=== PATIENT | female | born 1955 | race Caucasian/White ===

== ENCOUNTER 2021-02-12 07:39 | Outpatient (CLI) | payer BC, SELFPAY ==
--- NOTE | 2021-02-12 | ECHO_ITS ---
Patient Info Name: Alysha Paz Age: 66 years : 1955 Gender: Female Ht: 64 in Wt: 204 lbs BSA: 2.08 m2 HR: 60 bpm BP: 159 / 106 mmHg Heart Rhythm: Sinus Rhythm Exam Date: 02/12/2021 8:09 AM Exam Location: [facility] Patient Status: Outpatient Admit Date: 02/12/2021 Staff Ordering Physician: EugeneWarren MD Palletizer Operator: Juaquin Gaines, ANITHACS, RT Attending Provider: EugeneWarren MD Exam Type: CA echo doppler color flow Study Info Indications R07.9 - Chest pain, unspecified Complete two-dimensional, color flow and Doppler transthoracic echocardiogram is performed. Strain analysis performed. Summary 1. Complete two-dimensional, color flow and Doppler transthoracic echocardiogram is performed. 2. Left ventricular chamber dimension is normal. 3. Left ventricular systolic function is normal, estimated at 65-70%. 4. There is mildly increased left ventricular wall thickness. 5. The left ventricular diastolic function is normal. 6. Global longitudinal strain is borderline at -16 %. 7. Left atrial chamber dimension is mildly enlarged. 8. There is mild mitral valve regurgitation. 9. There is mild pulmonic regurgitation. Left Ventricle Left ventricular chamber dimension is normal. Left ventricular systolic function is normal, estimated at 65-70%. There is mildly increased left ventricular wall thickness. The left ventricular diastolic function is normal. Global longitudinal strain is borderline at -16 %. Right Ventricle Right ventricular chamber dimension is normal. Right ventricular systolic function is normal. Left Atria Left atrial chamber dimension is mildly enlarged. Right Atria Right atrial chamber dimension is normal. Atrial Septum Intact interatrial septum visualized by color flow imaging. Aortic Valve The aortic valve is trileaflet. There is mild aortic valve sclerosis. There is no aortic valve stenosis. There is trace aortic valve regurgitation. Pulmonic Valve The pulmonic valve is normal. There is no pulmonic valve stenosis. There is mild pulmonic regurgitation. Mitral Valve The mitral valve has normal leaflets. There is no mitral valve stenosis. There is mild mitral valve regurgitation. Tricuspid Valve The tricuspid valve leaflets are normal. There is no significant tricuspid valve stenosis. There is trace tricuspid valve regurgitation. Pericardium/Pleural The pericardium appears normal. There is no pericardial effusion. Inferior Vena Cava Dilated inferior vena cava with <50% collapse upon inspiration consistent with elevated right atrial pressure, 10 mmHg. Aorta The aortic root size at the sinus of Valsalva is normal. Left Ventricular Outflow Tract Name Value Normal LVOT 2D LVOT Diameter 2.0 cm LVOT Doppler LVOT Peak Gradient 3 mmHg LVOT Mean Gradient 1 mmHg LVOT VTI 23 cm LVOT VTI/AV VTI Ratio 0.7 LVOT Stroke Volume 72 ml LVOT CO 4.
--- NOTE | 2021-02-12 | EST_ITS ---
Patient Info Name: Alysha Paz Age: 66 years : 1955 Gender: Female Ht: 64 in Wt: 204 lbs BSA: 2.08 m2 HR: 64 bpm BP: 196 / 94 mmHg Heart Rhythm: Sinus Rhythm Exam Date: 02/12/2021 9:52 AM Exam Location: [facility] Patient Status: Outpatient Admit Date: 02/12/2021 Staff Ordering Physician: EugeneWarren MD Attending Provider: Eugene, Warren GUTIÉRREZ Exercise Technologist: Ana M Lujan CT Exercise Physician: Diony Grier MD Exam Type: CA stress test treadmill Study Info Indications R07.9 - Chest pain, unspecified An exercise stress test was performed. Summary 1. Frequent PVCs and rare ventricular couplets. 2. Borderline abnormal exercise treadmill stress test With Up to 1.5 mm Upsloping Inferolateral STSegment depressions Seen at peak exercise. Protocol: [facility] ECG Details Stage: REST Duration (min): 5 min : 23 sec Speed (mph): 0.0 Grade (%): 0 HR (bpm): 68 SBP (mmHg): 196 DBP (mmHg): 94 METS: --- Stage: REST Duration (min): 8 min : 29 sec Speed (mph): 0.0 Grade (%): 0 HR (bpm): 72 SBP (mmHg): 179 DBP (mmHg): 101 METS: --- Stage: STAGE 1 Duration (min): 1 min : 0 sec Speed (mph): 1.7 Grade (%): 10 HR (bpm): 99 SBP (mmHg): 179 DBP (mmHg): 101 METS: --- Stage: STAGE 1 Duration (min): 2 min : 0 sec Speed (mph): 1.7 Grade (%): 10 HR (bpm): 108 SBP (mmHg): 179 DBP (mmHg): 101 METS: --- Stage: STAGE 1 Duration (min): 3 min : 0 sec Speed (mph): 1.7 Grade (%): 10 HR (bpm): 113 SBP (mmHg): 179 DBP (mmHg): 101 METS: --- Stage: STAGE 2 Duration (min): 1 min : 0 sec Speed (mph): 2.5 Grade (%): 12 HR (bpm): 136 SBP (mmHg): 179 DBP (mmHg): 101 METS: --- Stage: STAGE 2 Duration (min): 2 min : 0 sec Speed (mph): 2.5 Grade (%): 12 HR (bpm): 145 SBP (mmHg): 199 DBP (mmHg): 99 METS: --- Stage: STAGE 2 Duration (min): 2 min : 0 sec Speed (mph): 2.5 Grade (%): 12 HR (bpm): 145 SBP (mmHg): 199 DBP (mmHg): 99 METS: --- Stage: RECOVERY Duration (min): 0 min : 59 sec Speed (mph): 0.0 Grade (%): 0 HR (bpm): 119 SBP (mmHg): 199 DBP (mmHg): 99 METS: --- Stage: RECOVERY Duration (min): 1 min : 59 sec Speed (mph): 0.0 Grade (%): 0 HR (bpm): 94 SBP (mmHg): 199 DBP (mmHg): 99 METS: --- Stage: RECOVERY Duration (min): 2 min : 59 sec Speed (mph): 0.0 Grade (%): 0 HR (bpm): 85 SBP (mmHg): 199 DBP (mmHg): 99 METS: --- Stage: RECOVERY Duration (min): 3 min : 59 sec Speed (mph): 0.0 Grade (%): 0 HR (bpm): 80 SBP (mmHg): 199 DBP (mmHg): 99 METS: --- Stage: RECOVERY Duration (min): 4 min : 59 sec Speed (mph): 0.0 Grade (%): 0 HR (bpm): 81 SBP (mmHg):
== END 2021-02-12 07:40 | disposition home or self-care (01) ==
PROVIDERS: Visit Provider Internal Medicine
DX: R07.89 Other chest pain (principal); I34.0 Nonrheumatic mitral (valve) insufficiency; I37.1 Nonrheumatic pulmonary valve insufficiency
CPT/HCPCS: 93017; 93306

== ENCOUNTER 2025-01-18 15:44 | Emergency (ER) | payer MEDICARE, SELFPAY ==
--- NOTE | ~2025-01-18 | XR_ITS ---
Examination: XR foot RT min 3V Clinical History: R foot wound, diabetic Comparison: None Technique: 3 views right foot Findings/impression: 1. No evidence of osteomyelitis or gas forming infection. 2. No fracture or other acute bony abnormality. Reviewed, dictated and finalized at location R.
--- OUTSIDE RECORDS SUMMARY | 2025-01-18 15:46 | XMS_ITS | Data Portability ---
Author Organization [place] [facility] [employer], Main Office Address [address] [place] [address] Assessment Encounter Date Assessment Date Assessment LastModified by Organization Details LastModified Time 12/16/2022 12/16/2022 Blood work Ozempic targets for A1c blood pressure blood lipids control discussed See me back in 4 weeks 2 week Holter complete echo carotid duplex MRI brain any similar symptoms go to the emergency room [email or web address] Not available 12/20/2022 16:16:53 01/20/2023 01/20/2023 Risks discussed in detail of uncontrolled diabetes as well as not getting worked up for stroke which were included but not limited to sepsis heart attack fatal and non fatal stroke fatal and nonfatal neuropathy amputations of extremities because of gangrene or serious neuropathy poor circulation in general blood sugar going too high resulting in coma and possibly to name a few she says she will start the medication I will see her back in a month it is unclear whether she is going to get the additional test Flu shot and COVID shots record as well as staying up-to-date with shingles tetanus and pneumonia immunizations [email or web address] Not available 01/23/2023 14:17:44 04/22/2023 04/22/2023 Will obtain blood work and if the A1c is what I suspect it will be fairly high she will need to go on a basal bolus insulin regimen continue with her other medications statin ex cetera I would like for her to reconsider getting worked up for stroke which right now she does not want to do she will see me back in a couple months. I think she would benefit from a dex con 6 ir freestyle José Luis some type of a continuous blood glucose monitoring strategy [email or web address] Not available 05/06/2023 15:41:03 Plan of Treatment Reminders Order Date Submit Date Provider Last Modified By Organization Details Last Modified Time Details Appointments None recorded. Lab CBC w/ auto diff 2023 024 [employer] [facility], [address], [place], [address], 4 15:57:08 lipid panel, serum 2023 024 [employer] [facility], [address], [place], [address], 4 16:32:35 CMP, serum or plasma 2023 024 [employer] [facility], [address], [place], [address], 4 16:32:41 HbA1c (hemoglobin A1c), blood 2023 024 [email or web address] [employer] [facility], [address], [place], [address], 4 18:17:52 T3, free, serum or plasma 2022 023 [employer] [facility], [address], [place], [address], 3 17:43:16 TSH, serum or plasma 2022 023 [employer] [facility], [address], [place], [address], 3 17:56:50 T4, free, serum 2022 023 [employer] [facility], [address], [place], [address], 3 17:43:19 CBC w/ auto diff 2022 023 [employer] [facility], [address], [place], [address], 3 17:18:02 lipid panel, serum 2022 023 [facility] [facility], [address], [place], [address], 3 17:26:51 CMP, serum or plasma 2022 023 [employer] [facility], [address], [place], [address], 3 17:26:55 HbA1c (hemoglobin A1c), blood 2022 023 [place] [id number] [employer] [facility], [address], [place], [address], 4 18:17:52 Referral None recorded. Procedures None recorded. Surgeries None recorded. Imaging US, duplex, carotid artery [address] ([facility]), [address] [place], [address], 4 18:18:00 MRI, brain, w/o contrast - Pt needs OPEN MRI [address] Patient Access Centralized Scheduling, Centralized Scheduling, [address] [facility] [place], [address], 4 15:39:12 US, echocardiog mary jo [address] ([facility]), [address] [place], [address], 4 18:18:00 holter monitor - 2wk holter [address] [facility], [address], [address], [place], [address], 4 18:18:01 Medication Orders Tresiba FlexTouch U-100 insulin 100 unit/mL (3 mL) [facility]23 024 [email or web address] [id number], [address], [place], [place], [id number], 4 17:35:39 Humalog KwikPen (U-100) Insulin 100 unit/mL subcutaneou s 2023 024 [email or web address] [facility] #[id number], [address] , [place], [place], [id number], 4 16:45:55 Ozempic 0.25 mg or 0.5 mg (2 mg/1.5 mL) [facility] s pen injector 2022 023 [email or web address] [facility] #[id number], [address] , [place], [place], [id number], 14:08:36 Patient TargetsNo targets recorded. Patient InstructionsNo instructions recorded. Reason for Referral None Reported. Results Created Date Observation Date Name Description Value Unit Range Abnormal Flag Note LastModifiedBy Organization Detail LastModifiedTime 12/29/1912/28/2022 CBC/C OMPLE TE BLD COUNT W/DIF F white blood cells 8.0 x10'3 /uL 4.2-10 .8 Not Available [facility] (Lab) [address] [place], [address], 12/28/2022 17:18:02 12/29/1912/28/2022 CBC/C OMPLE TE BLD COUNT W/DIF F red blood cells 5.36 x10'6 /uL 3.80-5 .20 high Not Available [facility] (Lab) [address] [place], [address], 12/28/2022 17:18:02 12/29/19 23 12/28/2022 CBC/C OMPLE TE BLD COUNT W/DIF F hemoglobin 15.2 g/dL 12.0-1 5.6 Not Available [facility] (Lab) [address] [place], [address], 12/28/2022 17:18:02 12/29/19 23 12/28/2022 CBC/C OMPLE TE BLD COUNT W/DIF F hematocrit 47.7 % 35.7-4 5.7 high Not Available [facility] (Lab) [address] [place], [address], 12/28/2022 17:18:02 12/29/19 23 12/28/2022 CBC/C OMPLE TE BLD COUNT W/DIF F mean red cell volume 89.0 fL 82.0-9 9.0 Not Available [facility] (Lab) [address] [place], [address], 12/28/2022 17:18:02 12/29/19 23 12/28/2022 CBC/C OMPLE TE BLD COUNT W/DIF F mean red cell hemoglobin 28.4 pg 27.0-3 3.0 Not Available [facility] (Lab) [address] [place], [address], 12/28/2022 17:18:02 12/29/19 23 12/28/2022 CBC/C OMPLE TE BLD COUNT W/DIF F mean RBC HGB concentratio n 31.9 g/dL 31.0-3 6.0 Not Available [facility] (Lab) [address] [place], [address], 12/28/2022 17:18:02 12/29/19 23 12/28/2022 CBC/C OMPLE TE BLD COUNT W/DIF F red cell distribution width 13.2 % 11.8-1 5.5 Not Available [facility] (Lab) [address] [place], [address], 12/28/2022 17:18:02 12/29/19 23 12/28/2022 CBC/C OMPLE TE BLD COUNT W/DIF F platelets 210 x10'3 /uL 150-40 0 Not Available [facility] (Lab) [address] [place], [address], 12/28/2022 17:18:02 12/29/1912/28/2022 CBC/C OMPLE TE BLD COUNT W/DIF F mean platelet volume 10.4 fL 9.0-12 .4 Not Available [facility] (Lab) [address] [place], [address], 12/28/2022 17:18:02 12/29/19 23 12/28/2022 CBC/C OMPLE TE BLD COUNT W/DIF F neutrophils 50.4 % 39.0-7 2.0 Not Available [facility] (Lab) [address] [place], [address], 12/28/2022 17:18:02 12/29/1912/28/2022 CBC/C OMPLE TE BLD COUNT W/DIF F lymphocytes 42.7 % 16.0-4 7.0 Not Available [facility] (Lab) [address] [place], [address], 12/28/2022 17:18:02 12/29/1912/28/2022 CBC/C OMPLE TE BLD COUNT W/DIF F monocytes 4.1 % 5.0-12 .0 low Not Available [facility] (Lab) [address] [place], [address], 12/28/2022 17:18:02 12/29/1912/28/2022 CBC/C OMPLE TE BLD COUNT W/DIF F eosinophils 2.1 % 1.0-7. 0 Not Available [facility] (Lab) [address] [place], [address], 12/28/2022 17:18:02 12/29/19 23 12/28/2022 CBC/C OMPLE TE BLD COUNT W/DIF F basophils 0.5 % 0.0-2. 0 Not Available [facility] (Lab) [address] [place], [address], 12/28/2022 17:18:02 12/29/1912/28/2022 CBC/C OMPLE TE BLD COUNT W/DIF F immature granulocytes 0.2 % 0.00-0 .50 Not Available [facility] (Lab) [address] [place], [address], 12/28/2022 17:18:02 12/29/19 23 12/28/2022 CBC/C OMPLE TE BLD COUNT W/DIF F neutrophils, absolute count 4.03 x10'3 /uL 1.5-8. 0 Not Available [facility] (Lab) [address] [place], [address], 12/28/2022 17:18:02 12/29/1912/28/2022 CBC/C OMPLE TE BLD COUNT W/DIF F lymphocytes, absolute count 3.42 x10'3 /uL 1.07-3 .43 Not Available [facility] (Lab) [address] [place], [address], 12/28/2022 17:18:02 12/29/1912/28/2022 CBC/C OMPLE TE BLD COUNT W/DIF F monocytes, absolute count 0.33 x10'3 /uL 0.29-0 .99 Not Available [facility] (Lab) [address] [place], [address], 12/28/2022 17:18:02 12/29/19 23 12/28/2022 CBC/C OMPLE TE BLD COUNT W/DIF F eosinophils, absolute count 0.17 x10'3 /uL 0.02-0 .53 Not Available [facility] (Lab) [address] [place], [address], 12/28/2022 17:18:02 12/29/1912/28/2022 CBC/C OMPLE TE BLD COUNT W/DIF F basophils, absolute count 0.04 x10'3 /uL 0.01-0 .08 Not Available [facility] (Lab) [address] [place], [address], 12/28/2022 17:18:02 12/29/19 23 12/28/2022 CBC/C OMPLE TE BLD COUNT W/DIF F immature granulocytes ,absolute 0.02 x10'3 /uL 0.00-0 .05 Not Available [facility] (Lab) [address] [place], [address], 12/28/2022 17:18:02 12/29/19 23 12/28/2022 CBC/C OMPLE TE BLD COUNT W/DIF F nucleated red blood cells 0.0 % -[address] [facility] (Lab) [address] [place], [address], 12/28/2022 17:18:02 12/29/1912/28/2022 CBC/C OMPLE TE BLD COUNT W/DIF F NRBC# 0.00 x10'3 /uL Not Available [facility] (Lab) [address] [place], [address], 12/28/2022 17:18:02 12/29/1912/28/2022 LIPID PANEL cholesterol 182 mg/dL 140-19 9 NIH DAVE NSUS RECOM MENDA TION FOR PATO STERO L: ADULT CHILD LOW RISK: <200 <170 BORDE RLINE : <200- 239 ----- HIGH RISK: >240 >200 Not Available [facility] (Lab) [address] [place], [address], 12/28/2022 17:26:51 12/29/1912/28/2022 LIPID PANEL triglyceride s 108 mg/dL 0-150 NIH DAVE NSUS REPOR T RECOM MENDA TION FOR TRIGL YCERI CHALO: ADULT CHILD LOW RISK: <150 ----- BODER LINE: 150-1 99 ----- HIGH RISK: >200 ----- Not Available [facility] (Lab) [address] [place], [address], 12/28/2022 17:26:51 12/29/1912/28/2022 LIPID PANEL HDL cholesterol 72 mg/dL 40- Not Available [facility] (Lab) [address] [place], [address], 12/28/2022 17:26:51 12/29/1912/28/2022 LIPID PANEL LDL cholesterol, calculated 88 mg/dL 0-130 NIH DAVE NSUS REPOR T RECOM MENDA TIONS FOR LDL: ADULT CHILD LOW RISK <130 <110 (OPTI MAL LDL) <100 ----- BORDE RLINE : 130-1 59 ----- HIGH RISK: >160 >130 A TRIGL YCERI DE RESUL T >400 INVAL IDATE S THE CALCU LATIO N FOR LDL FRACT IONAT ION - THE LDL RESUL T WILL NOT BE REPOR DECLAN. Not Available [facility] (Lab) [address] [place], [address], 12/28/2022 17:26:51 12/29/1912/28/2022 COMPR EHENS FAMILIA METAB OLIC PANEL sodium 135 mmol/ L 137-14 5 low Not Available [facility] (Lab) [address] [place], [address], 12/28/2022 17:26:55 12/29/1912/28/2022 COMPR EHENS FAMILIA METAB OLIC PANEL potassium 4.3 mmol/ L 3.5-5. 1 Not Available [facility] (Lab) [address] [place], [address], 12/28/2022 17:26:55 12/29/19 23 12/28/2022 COMPR EHENS FAMILIA METAB OLIC PANEL chloride 101 mmol/ L 98-107 Not Available [facility] (Lab) [address] [place], [address], 12/28/2022 17:26:55 12/29/19 23 12/28/2022 COMPR EHENS FAMILIA METAB OLIC PANEL carbon dioxide 27 mmol/ L 22-30 Not Available [facility] (Lab) [address] [place], [address], 12/28/2022 17:26:55 12/29/19 23 12/28/2022 COMPR EHENS FAMILIA METAB OLIC PANEL anion gap 11.3 mmol/ L 14-22 low Not Available [facility] (Lab) [address] [place], [address], 12/28/2022 17:26:55 12/29/19 23 12/28/2022 COMPR EHENS FAMILIA METAB OLIC PANEL glucose 334 mg/dL 70-99 high Not Available [facility] (Lab) [address] [place], [address], 12/28/2022 17:26:55 12/29/19 23 12/28/2022 COMPR EHENS FAMILIA METAB OLIC PANEL BUN 19 mg/dL 8-19 Not Available [facility] (Lab) [address] [place], [address], 12/28/2022 17:26:55 12/29/19 23 12/28/2022 COMPR EHENS FAMILIA METAB OLIC PANEL creatinine 0.51 mg/dL 0.66-1 .25 low Not Available [facility] (Lab) [address] [place], [address], 12/28/2022 17:26:55 12/29/19 23 12/28/2022 COMPR EHENS FAMILIA METAB OLIC PANEL GFR >60 Refer ence Range : [place] ge GFR Healt hy Adult : >60 mL/mi n/1.7 3 m2 Chron ic Kidne y Disea se: 15-60 mL/mi n/1.7 3 m2 Kidne y Failu re: <15/m L/min /1.73 m2 www.n iddk. nih.g ov The MDRD study equat ion has not been valid ated in child tena <18 years of age; pregn ant women ; the elder ly >85 years of age; or in some racia l or ethni c subgr oups, such as Hispa nics. Outsi de the valid ated shahram eters , estim ated GFR is less accur ate, requi ring clini radha judgm ent on a case- by-ca se basis . Clini radha inter preta tion for other races and ages must be made by the clini ariel. The MDRD study equat ion has not been valid ated for the evalu ation of serum creat inine relat ed to nutri oren l statu s or medic ation usage . For perso ns <18 years of age, a pedia tric GFR calcu lator is avail able on the [facility] websi te: https ://prashant w.kid demian.o rg/pr ofess ional s/kdo qi/gf r_cal culat or Not Available [facility] (Lab) [address] [place], [address], 12/28/2022 17:26:55 12/29/19 23 12/28/2022 COMPR EHENS FAMILIA METAB OLIC PANEL alkaline phosphatase 86 U/L 38-126 Not Available [facility] (Lab) [address] [place], [address], 12/28/2022 17:26:55 12/29/1912/28/2022 COMPR EHENS FAMILIA METAB OLIC PANEL alanine aminotransfe rase 28 U/L 0-[address] [facility] (Lab) [address] [place], [address], 12/28/2022 17:26:55 12/29/19 23 12/28/2022 COMPR EHENS FAMILIA METAB OLIC PANEL aspartate aminotransfe rase 21 U/L 15-[address] [facility] (Lab) [address] [place], [address], 12/28/2022 17:26:55 12/29/19 23 12/28/2022 COMPR EHENS FAMILIA METAB OLIC PANEL bilirubin, total 0.40 mg/dL 0.20-1 .30 Not Available [facility] (Lab) [address] [place], [address], 12/28/2022 17:26:55 12/29/19 23 12/28/2022 COMPR EHENS FAMILIA METAB OLIC PANEL calcium 9.4 mg/dL 8.4-10 .2 Not Available [facility] (Lab) [address] [place], [address], 12/28/2022 17:26:55 12/29/19 23 12/28/2022 COMPR EHENS FAMILIA METAB OLIC PANEL total protein 6.5 g/dL 6.3-8. 2 Not Available [facility] (Lab) [address] [place], [address], 12/28/2022 17:26:55 12/29/19 23 12/28/2022 COMPR EHENS FAMILIA METAB OLIC PANEL albumin 4.0 g/dL 3.0-4. 4 Not Available [facility] (Lab) [address] [place], [address], 12/28/2022 17:26:55 12/29/19 23 12/28/2022 COMPR EHENS FAMILIA METAB OLIC PANEL globulin 2.5 g/dL 2.6-4. 2 low Not Available [facility] (Lab) [address] [place], [address], 12/28/2022 17:26:55 12/29/19 23 12/28/2022 COMPR EHENS FAMILIA METAB OLIC PANEL A/G ratio 1.6 ratio 1.0-2. 0 Not Available [facility] (Lab) [address] [place], [address], 12/28/2022 17:26:55 12/29/19 23 12/28/2022 T3 FREE free T3 2.9 pg/mL 2.77-5 .27 Not Available [facility] (Lab) [address] [place], [address], 12/28/2022 17:43:16 12/29/19 23 12/28/2022 T4 FREE free T4 1.26 NG/dL 0.78-2 .19 Not Available [facility] (Lab) [address] [place], [address], 12/28/2022 17:43:19 12/29/19 23 12/28/2022 TSH thyroid-stim ulating hormone 1.120 uIU/m L 0.465- 4.680 Not Available [facility] (Lab) [address] [place], [address], 12/28/2022 17:56:50 12/29/1912/28/2022 HEMOG LOBIN A1C HA1C 12.4 % 4.0-6. 0 high Diabe brandon Scree jason Crite yuridia: <5.7% Consi stent with absen ce of diabe brandon 5.7-6 .4% Consi stent with incre ased risk for diabe brandon (pred iabet es) >OR=6 .5% Consi stent with diabe brandon REFER ENCE: Diabe brandon Care 2016, 39(Garvey ppl.1 ):s13 -s22 Not Available [facility] (Lab) [address] [place], [address], 12/28/2022 19:20:22 04/22/19 24 04/22/2023 CBC/C OMPLE TE BLD COUNT W/DIF F white blood cells 8.4 x10'3 /uL 4.2-10 .8 Not Available [facility] (Lab) [address] [place], [address], 04/22/2023 15:57:08 04/22/19 24 04/22/2023 CBC/C OMPLE TE BLD COUNT W/DIF F red blood cells 5.51 x10'6 /uL 3.80-5 .20 high Not Available [facility] (Lab) [address] [place], [address], 04/22/2023 15:57:08 04/22/19 24 04/22/2023 CBC/C OMPLE TE BLD COUNT W/DIF F hemoglobin 16.2 g/dL 12.0-1 5.6 high Not Available [facility] (Lab) [address] [place], [address], 04/22/2023 15:57:08 04/22/19 24 04/22/2023 CBC/C OMPLE TE BLD COUNT W/DIF F hematocrit 49.5 % 35.7-4 5.7 high Not Available [facility] (Lab) [address] [place], [address], 04/22/2023 15:57:08 04/22/19 24 04/22/2023 CBC/C OMPLE TE BLD COUNT W/DIF F mean red cell volume 89.8 fL 82.0-9 9.0 Not Available [facility] (Lab) [address] [place], [address], 04/22/2023 15:57:08 04/22/19 24 04/22/2023 CBC/C OMPLE TE BLD COUNT W/DIF F mean red cell hemoglobin 29.4 pg 27.0-3 3.0 Not Available [facility] (Lab) [address] [place], [address], 04/22/2023 15:57:08 04/22/19 24 04/22/2023 CBC/C OMPLE TE BLD COUNT W/DIF F mean RBC HGB concentratio n 32.7 g/dL 31.0-3 6.0 Not Available [facility] (Lab) [address] [place], [address], 04/22/2023 15:57:08 04/22/19 24 04/22/2023 CBC/C OMPLE TE BLD COUNT W/DIF F red cell distribution width 13.5 % 11.8-1 5.5 Not Available [facility] (Lab) [address] [place], [address], 04/22/2023 15:57:08 04/22/19 24 04/22/2023 CBC/C OMPLE TE BLD COUNT W/DIF F platelets 247 x10'3 /uL 150-40 0 Not Available [facility] (Lab) [address] [place], [address], 04/22/2023 15:57:08 04/22/19 24 04/22/2023 CBC/C OMPLE TE BLD COUNT W/DIF F mean platelet volume 10.2 fL 9.0-12 .4 Not Available [facility] (Lab) [address] [place], [address], 04/22/2023 15:57:08 04/22/19 24 04/22/2023 CBC/C OMPLE TE BLD COUNT W/DIF F neutrophils 56.8 % 39.0-7 2.0 Not Available [facility] (Lab) [address] [place], [address], 04/22/2023 15:57:08 04/22/19 24 04/22/2023 CBC/C OMPLE TE BLD COUNT W/DIF F lymphocytes 35.7 % 16.0-4 7.0 Not Available [facility] (Lab) [address] [place], [address], 04/22/2023 15:57:08 04/22/19 24 04/22/2023 CBC/C OMPLE TE BLD COUNT W/DIF F monocytes 4.6 % 5.0-12 .0 low Not Available [facility] (Lab) [address] [place], [address], 04/22/2023 15:57:08 04/22/19 24 04/22/2023 CBC/C OMPLE TE BLD COUNT W/DIF F eosinophils 1.7 % 1.0-7. 0 Not Available [facility] (Lab) [address] [place], [address], 04/22/2023 15:57:08 04/22/19 24 04/22/2023 CBC/C OMPLE TE BLD COUNT W/DIF F basophils 0.5 % 0.0-2. 0 Not Available [facility] (Lab) [address] [place], [address], 04/22/2023 15:57:08 04/22/19 24 04/22/2023 CBC/C OMPLE TE BLD COUNT W/DIF F immature granulocytes 0.7 % 0.00-0 .50 high Not Available [facility] (Lab) [address] [place], [address], 04/22/2023 15:57:08 04/22/19 24 04/22/2023 CBC/C OMPLE TE BLD COUNT W/DIF F neutrophils, absolute count 4.78 x10'3 /uL 1.5-8. 0 Not Available [facility] (Lab) [address] [place], [address], 04/22/2023 15:57:08 04/22/19 24 04/22/2023 CBC/C OMPLE TE BLD COUNT W/DIF F lymphocytes, absolute count 3.00 x10'3 /uL 1.07-3 .43 Not Available [facility] (Lab) [address] [place], [address], 04/22/2023 15:57:08 04/22/19 24 04/22/2023 CBC/C OMPLE TE BLD COUNT W/DIF F monocytes, absolute count 0.39 x10'3 /uL 0.29-0 .99 Not Available [facility] (Lab) [address] [place], [address], 04/22/2023 15:57:08 04/22/19 24 04/22/2023 CBC/C OMPLE TE BLD COUNT W/DIF F eosinophils, absolute count 0.14 x10'3 /uL 0.02-0 .53 Not Available [facility] (Lab) [address] [place], [address], 04/22/2023 15:57:08 04/22/19 24 04/22/2023 CBC/C OMPLE TE BLD COUNT W/DIF F basophils, absolute count 0.04 x10'3 /uL 0.01-0 .08 Not Available [facility] (Lab) [address] [place], [address], 04/22/2023 15:57:08 04/22/19 24 04/22/2023 CBC/C OMPLE TE BLD COUNT W/DIF F immature granulocytes ,absolute 0.06 x10'3 /uL 0.00-0 .05 high Not Available [facility] (Lab) [address] [place], [address], 04/22/2023 15:57:08 04/22/19 24 04/22/2023 CBC/C OMPLE TE BLD COUNT W/DIF F nucleated red blood cells 0.0 % -[address] [facility] (Lab) [address] [place], [address], 04/22/2023 15:57:08 04/22/19 24 04/22/2023 CBC/C OMPLE TE BLD COUNT W/DIF F NRBC# 0.00 x10'3 /uL Not Available [facility] (Lab) [address] [place], [address], 04/22/2023 15:57:08 04/22/19 24 04/22/2023 LIPID PANEL cholesterol 143 mg/dL 140-19 9 NIH DAVE NSUS RECOM MENDA TION FOR PATO STERO L: ADULT CHILD LOW RISK: <200 <170 BORDE RLINE : <200- 239 ----- HIGH RISK: >240 >200 Not Available [facility] (Lab) [address] [place], [address], 04/22/2023 16:32:35 04/22/19 24 04/22/2023 LIPID PANEL triglyceride s 140 mg/dL 0-150 NIH DAVE NSUS REPOR T RECOM MENDA TION FOR TRIGL YCERI CHALO: ADULT CHILD LOW RISK: <150 ----- BODER LINE: 150-1 99 ----- HIGH RISK: >200 ----- Not Available [facility] (Lab) [address] [place], [address], 04/22/2023 16:32:35 04/22/19 24 04/22/2023 LIPID PANEL HDL cholesterol 45 mg/dL 40- Not Available [facility] (Lab) [address] [place], [address], 04/22/2023 16:32:35 04/22/19 24 04/22/2023 LIPID PANEL LDL cholesterol, calculated 70 mg/dL 0-130 NIH DAVE NSUS REPOR T RECOM MENDA TIONS FOR LDL: ADULT CHILD LOW RISK <130 <110 (OPTI MAL LDL) <100 ----- BORDE RLINE : 130-1 59 ----- HIGH RISK: >160 >130 A TRIGL YCERI DE RESUL T >400 INVAL IDATE S THE CALCU LATIO N FOR LDL FRACT IONAT ION - THE LDL RESUL T WILL NOT BE REPOR DECLAN. Not Available [facility] (Lab) [address] [place], [address], 04/22/2023 16:32:35 04/22/19 24 04/22/2023 COMPR EHENS FAMILIA METAB OLIC PANEL sodium 136 mmol/ L 137-14 5 low Not Available [facility] (Lab) [address] [place], [address], 04/22/2023 16:32:41 04/22/19 24 04/22/2023 COMPR EHENS FAMILIA METAB OLIC PANEL potassium 4.2 mmol/ L 3.5-5. 1 Not Available [facility] (Lab) [address] [place], [address], 04/22/2023 16:32:41 04/22/19 24 04/22/2023 COMPR EHENS FAMILIA METAB OLIC PANEL chloride 100 mmol/ L 98-107 Not Available [facility] (Lab) [address] [place], [address], 04/22/2023 16:32:41 04/22/19 24 04/22/2023 COMPR EHENS FAMILIA METAB OLIC PANEL carbon dioxide 24 mmol/ L 22-30 Not Available [facility] (Lab) [address] [place], [address], 04/22/2023 16:32:41 04/22/19 24 04/22/2023 COMPR EHENS FAMILIA METAB OLIC PANEL anion gap 16.2 mmol/ L 14-22 Not Available [facility] (Lab) [address] [place], [address], 04/22/2023 16:32:41 04/22/19 24 04/22/2023 COMPR EHENS FAMILIA METAB OLIC PANEL glucose 293 mg/dL 70-99 high Not Available [facility] (Lab) [address] [place], [address], 04/22/2023 16:32:41 04/22/19 24 04/22/2023 COMPR EHENS FAMILIA METAB OLIC PANEL BUN 18 mg/dL 8-19 Not Available [facility] (Lab) [address] [place], [address], 04/22/2023 16:32:41 04/22/19 24 04/22/2023 COMPR EHENS FAMILIA METAB OLIC PANEL creatinine 0.54 mg/dL 0.66-1 .25 low Not Available [facility] (Lab) [address] [place], [address], 04/22/2023 16:32:41 04/22/19 24 04/22/2023 COMPR EHENS FAMILIA METAB OLIC PANEL GFR >60 Refer ence Range : [place] [facility] GFR [facility] hy Adult : >60 mL/mi n/1.7 3 m2 Chron ic Kidne y Disea se: 15-60 mL/mi n/1.7 3 m2 Kidne y Failu re: <15/m L/min /1.73 m2 www.n iddk. nih.g ov The MDRD study equat ion has not been valid ated in child tena <18 years of age; pregn ant women ; the elder ly >85 years of age; or in some racia l or ethni c subgr oups, such as Hisid nics. Outsi de the valid ated shahram eters , estim ated GFR is less accur ate, requi ring clini radha judgm ent on a case- by-ca se basis . Clini radha inter preta tion for other races and ages must be made by the clini ariel. The MDRD study equat ion has not been valid ated for the evalu ation of serum creat inine relat ed to nutri oren l statu s or medic ation usage . For perso ns <18 years of age, a pedia tric GFR calcu lator is avail able on the [facility] websi te: https ://ww w.kid demian.o rg/pr ofess ional s/kdo qi/gf r_cal culat or Not Available [facility] (Lab) [address] [place], [address], 04/22/2023 16:32:41 04/22/19 24 04/22/2023 COMPR EHENS FAMILIA METAB OLIC PANEL alkaline phosphatase 105 U/L 38-126 Not Available [facility] (Lab) [address] [place], [address], 04/22/2023 16:32:41 04/22/19 24 04/22/2023 COMPR EHENS FAMILIA METAB OLIC PANEL alanine aminotransfe rase 55 U/L 0-[address] [facility] (Lab) [address] [place], [address], 04/22/2023 16:32:41 04/22/19 24 04/22/2023 COMPR EHENS FAMILIA METAB OLIC PANEL aspartate aminotransfe rase 37 U/L 15-[address] [facility] (Lab) [address] [place], [address], 04/22/2023 16:32:41 04/22/19 24 04/22/2023 COMPR EHENS FAMILIA METAB OLIC PANEL bilirubin, total 0.40 mg/dL 0.20-1 .30 Not Available [facility] (Lab) [address] [place], [address], 04/22/2023 16:32:41 04/22/19 24 04/22/2023 COMPR EHENS FAMILIA METAB OLIC PANEL calcium 9.8 mg/dL 8.4-10 .2 Not Available [facility] (Lab) [address] [place], [address], 04/22/2023 16:32:41 04/22/19 24 04/22/2023 COMPR EHENS FAMILIA METAB OLIC PANEL total protein 6.7 g/dL 6.3-8. 2 Not Available [facility] (Lab) [address] [place], [address], 04/22/2023 16:32:41 04/22/19 24 04/22/2023 COMPR EHENS FAMILIA METAB OLIC PANEL albumin 4.1 g/dL 3.0-4. 4 Not Available [facility] (Lab) [address] [place], [address], 04/22/2023 16:32:41 04/22/19 24 04/22/2023 COMPR EHENS FAMILIA METAB OLIC PANEL globulin 2.6 g/dL 2.6-4. 2 Not Available [facility] (Lab) [address] [place], [address], 04/22/2023 16:32:41 04/22/19 24 04/22/2023 COMPR EHENS FAMILIA METAB OLIC PANEL A/G ratio 1.6 ratio 1.0-2. 0 Not Available [facility] (Lab) [address] [place], [address], 04/22/2023 16:32:41 04/22/19 24 04/23/2023 HEMOG LOBIN A1C HA1C 12.2 % 4.0-6. 0 high Diabe brandon Julisa gomez Crite yuridia: <5.7% Consi stent with absen ce of diabe brandon 5.7-6 .4% Consi stent with incre ased risk for diabe brandon (pred iabet es) >OR=6 .5% Consi stent with diabe brandon REFER ENCE: Diabe brandon Care 2016, 39(Garvey ppl.1 ):s13 -s22 Not Available [facility] (Lab) [address] [place], [address], 04/23/2023 02:08:08 07/02/19 23 07/01/2022 screjames clarkodalys duong t christopher, bilat [facility] [address] [place] [address] Patien t Name: SYEDA MEDINA Access ion #: [id number] Sex: F : 1954 3 Locati on: RAD Attend ing Physic erik: CAILIN KNIGHT Orderi ng Physic erik: CAILIN KNIGHT Exam Date: 023 7:46 AM Exam Name: MG HERNANDEZ BREAST CHRISTOPHER BILAT Admitt ing Diagno sis(es ): MAMMOG BUCKY REPORT - FINAL EXAM: SCRN BREAST CHRISTOPHER BILAT HISTOR Y: SCREEN ING MAMMOG MARY JO 67-yea r-old female with no curren t breast compla ints. COMPAR GLENDY: 2018, 2016 TECHNI QUE: Bilate ral CC and MLO views of the breast s were perfor med. Digita l Mammog bucky images were obtain ed. CAD (compu ter assist ed detect ion) was utiliz ed. 3D Digita l breast tomosy nthesi s was perfor med and used in the interp retati on of images . FINDIN GS: There are scatte red areas of fibrog landul ar densit y. There are stable small circum scribe d nodule s in the right upper outer breast . Page 1 of [address] [facility] [address] [facility] Name: SYEDA MEDINA Access ion #: [id number] Sex: F : 1954 3 Exam Date: 023 7:46 AM Exam Name: MG HERNANDEZ BREAST CHRISTOPHER BILAT Admitt ing Diagno sis(es ): No new masses , develo ping asymme tries, suspic ious calcif icatio ns, or horacio ectura l distor tion are seen. IMPRES MARIA EUGENIA: BIRADS 2: Assess ment comple te. Benign findin gs. Recomm end annual screen ing mammog bucky. Accord ing to the [employer], yearly mammog fabio are recomm ended starti ng at age 40 and contin uing as long as the woman is in good health . Clinic al Breast Exam should be part of the period health exam-a bout every 3 years for women in their 20s and 30s and every year for women 40 and over. Breast self-e xam is an option for women in their 20s. Any breast change noted on the breast self-e xam she would be report ed prompt ly [facility]. A negati ve mammog bucky report should not discou rage follow -up or biopsy of a clinic ally signif icant findin g and/or abnorm ality. Dense breast tissue may obscur e small neopla sms. This patien t has been entere d into a mammog bucky remind er system with a target date for her next mammog mary jo. Create d and electr onical ly signed by: Cristiano ramirez MD Signed Date: 9:43 AM (CT) Dictat ed by: Cristiano ramirez MD DD: 9:43 AM (CT) DT: 9:43 AM (CT) Page 2 of 2 [id number] [facility] (Imaging) [address] [place], [address], 12/17/2022 10:07:35 Result Notes None recorded. Problems Name Problem SNOMED Code Status Onset Date Resolution Date Notes Provider Name and Address Organization Details Recorded Time Hyperchole sterolemia 26396465 Active Not Available [facility] 4 04:39:00 Sciatica 25596524 Completed Not Available [facility] 3 01:34:18 Low back pain 797388329 Completed Not Available [facility] 3 01:34:18 Hypertensi ve disorder 14601205 Active Not Available [facility] 4 04:39:00 Hyperlipid emia 07986886 Completed Not Available [facility] 3 01:34:18 Essential hypertensi on 92933831 Active Not Available [facility] 4 04:39:00 Skin lesion 52195309 Completed Not Available [facility] 3 01:34:19 Diabetes mellitus 40113489 Active 2018 Not Available [facility] 4 04:39:00 Gastroesop hageal reflux disease without esophagiti s 907805232 Active 2020 Not Available [facility] 4 04:39:00 Acute dermatitis 19041062 Active 2022 Not Available [facility] 4 04:39:00 Type 2 diabetes mellitus without complicati on 663973798 Active 2022 Not Available [facility] 4 04:39:00 Transient cerebral ischemia 634049393 Active 2022 Not Available [facility] 4 04:39:00 Problem Notes None recorded. Procedures Surgical History Date Name Laterality Status Provider Name and Address Organization Details Recorded Time 12/10/19 17 Date of Last Colonoscopy completed Not Available [facility] 06/17/2022 01:20:41 Unlisted px dentalvlr strux completed Not Available [facility] 06/17/2022 01:20:49 Imaging Results None recorded. Procedure Notes None recorded. Medical Equipment None Reported. Allergies Allergen ID Allergen Name Allergen Category Reaction Reaction Severity Criticality Documentation Date Start Date Code Code System Note Provider Name and Address Organization Details Recorded Time 294 Product containin g penicilli n (product) medicatio n Not available Not available Not available 06/17/2022 22655 8001 SNOMED Not Available [facility] 3 01:51:02 Medications Name Sig Start Date Stop Date Status Note LastModified by Organization Details LastModified Time carisopro dol 350 mg tablet TK 1 T PO HS active Not Available Not Available No t Available prednison e 10 mg tablet Take 40 mg. x3 days, 30 mg. x3 days, 20 mg. x3 days, 10 mg. x3 days active Not Available Not Available No t Available doxycycli ne hyclate 100 mg capsule TAKE 1 CAPSULE BY MOUTH EVERY DAY FOR 10 DAYS 01/20 completed Not Available Not Available Not Available atorvasta tin 10 mg tablet active Not Available Not Available Not Available azithromy edward 250 mg tablet take as directed 12/26 completed Not Available Not Available Not Available hydrocodo ne 5 mg-acetam inophen 325 mg tablet 04/13 completed Not Available Not Available Not Available minocycli ne 100 mg capsule TK ONE C PO BID 02/14 completed Not Available Not Available Not Available clobetaso l 0.05 % topical cream APPLY TOPICALL Y TO HANDS TWICE DAILY active Not Available Not Available No t Available quinapril 10 mg-hydroc hlorothia zide 12.5 mg tablet TAKE 1 TABLET ONCE DAILY 06/10 completed Not Available Not Available Not Available clindamyc in HCl 150 mg capsule 04/13 completed Not Available Not Available Not Available fexofenad ine 180 mg tablet Take 1 tablet every day by oral route. 12/26 completed Not Available Not Available Not Available ciproflox acin 500 mg tablet Take 1 tablet every 12 hours by oral route. 05/04 completed Not Available Not Available Not Available triamcino lone acetonide 0.1 % topical cream APPLY TOPICALL Y TO RASH EVERY NIGHT AT BEDTIME 04/22 completed Not Available Not Available Not Available nystatin- triamcino lone 100,000 unit/gram -0.1 % topical ointment APPLY TO THE AFFECTED AREA(S) BY TOPICAL ROUTE 2 TIMES PER DAY active Not Available Not Available No t Available quinapril 10 mg tablet TAKE 1 TABLET ONCE DAILY WITH HYDROCHL OROTHIAZ LINUS 12.5MG. 12/23 completed Not Available Not Available Not Available OneTouch Ultra Test strips Take 1 strip 3 times a day by miscell. route. active Not Available Not Available No t Available pantopraz ole 40 mg tablet,de layed release Take 1 tablet every day by oral route. 01/20 completed Not Available Not Available Not Available tacrolimu s 0.1 % topical ointment APPLY TOPICALL Y TO HANDS TWICE DAILY active Not Available Not Available No t Available lisinopri l 10 mg tablet Take 1 tablet every day by oral route. active Not Available Not Available No t Available fluoromet holone 0.1 % eye drops,carine pension 04/13 completed Not Available Not Available Not Available polymyxin B sulfate 10,000 unit-trim ethoprim 1 mg/mL eye drops 01/23 completed Not Available Not Available Not Available nystatin- triamcino lone 100,000 unit/g-0. 1 % topical cream 07/27 completed Not Available Not Available Not Available etodolac 400 mg tablet TK 1 T PO BID 07/28 completed Not Available Not Available Not Available clobetaso l 0.05 % topical ointment APPLY TO THE AFFECTED AREA OF HAND TWICE DAILY NEEDED 01/20 completed Not Available Not Available Not Available fluticaso ne propionat e 50 mcg/actua tion nasal spray,carine pension Inhale 2 sprays every day by intranas al route. 12/26 completed Not Available Not Available Not Available calcipotr iene 0.005 % topical ointment active Not Available Not Available Not Available insulin lispro (U-100) 100 unit/mL subcutane ous pen Inject 20 units every day by subcutan eous route with meal(s) for 30 days. 05/17 completed see pt case Not Available Not Available Not Available Novolog FlexPen U-100 Insulin aspart 100 unit/mL (3 mL) subcutane ous INJECT 20 UNITS UNDER THE SKIN WITH MEALS active Not Available Not Available No t Available BD Ultra-Fin e Mini Pen Needle 31 gauge x 3/16 INJECT UNDER THE SKIN THREE TIMES DAILY 04/13 completed Not Available Not Available Not Available multivita min 2020 active Not Available Not Available Not Avai lable Adult Low Dose Aspirin Take one tablet daily 2017 active Not Available Not Available Not Avai lable Januvia 100 mg tablet TK 1 T PO QD. 01/26 completed [facility] for next fill Not Available Not Available Not Available hydrochlo rothiazid e 12.5 mg tablet TAKE 1 TABLET DAILY active Not Available Not Available No t Available Lantus Solostar U-100 Insulin 100 unit/mL (3 mL) subcutane ous pen Inject 50 units twice a day by sub-q route for 90 days. 07/28 completed Not Available Not Available Not Available Apidra SoloStar U-100 Insulin 100 unit/mL subcutane ous pen Use sliding scale with each meal UP 42 units qd 02/14 completed Not Available Not Available Not Available Onglyza 5 mg tablet Take 1 tablet every day by oral route. 04/03 completed Not Available Not Available Not Available Sure Comfort Lancing Pen 04/13 completed Not Available Not Available Not Available Suprep Bowel Prep Kit 17.5 gram-3.13 gram-1.6 gram oral solution 01/26 completed Not Available Not Available Not Available Bydureon 2 mg subcutane ous extended release suspensio n INJ 2 MG IN THE SKIN ONCE WEEKLY active Not Available Not Available No t Available Accu-Chek Fara Plus Meter 04/13 completed Not Available Not Available Not Available Sure Comfort Lancets 30 gauge 04/13 completed Not Available Not Available Not Available Prolensa 0.07 % eye drops 01/23 completed Not Available Not Available Not Available Farxiga 5 mg tablet TAKE 1 TABLET BY MOUTH EVERY DAY active Not Available Not Available No t Available Levemir FlexTouch U-100 Insulin 100 unit/mL (3 mL) subcutane ous pen INJ 70 UNITS SC BID 04/13 completed Not Available Not Available Not Available Tresiba FlexTouch U-100 insulin 100 unit/mL (3 mL) subcutane ous pen INJECT 30 UNITS UNDER THE SKIN DAILY AT BEDTIME active Not Available Not Available No t Available Ozempic 0.25 mg or 0.5 mg (2 mg/1.5 mL) subcutane ous pen injector inject 0.25mg weekly for 4wks then go to 0.5mg weekly for 4wks 01/20 completed Not Available Not Available Not Available OneTouch Ultra Blue Test Strip active Not Available Not Available Not Available Dexcom G6 Transmitt er device FOLLOW PACKAGE DIRECTIO NS active Not Available Not Available No t Available ID NOW COVID-19 Test Kit TEST DIRECTED TODAY 06/02 completed Not Available Not Available Not Available Ozempic 0.25 mg or 0.5 mg (2 mg/3 mL) subcutane ous pen injector INJECT 0.25MG WEEKLY FOR 4 WEEKS THEN GO TO 0.5 MG WEEKLY FOR 4 WEEKS active Not Available Not Available No t Available Vitals Date Recorded Body height Body mass index (BMI) Body weight Body temperature Heart rate Systolic And Diastolic Provider Name and Address Organization Details Last Updated DateTime 4 162.56 cm 35.7 kg/m2 22042.2 1 g 97.2 [degF] 69 /min 128/88 mm[Hg] NENITA Valdes [place] [facility] [place] [employer] [facility] 4 13:29:47 Date Recorded Body mass index (BMI) Body height Oxygen saturation Oxygen saturation in Arterial blood by Pulse oximetry Heart rate Body temperature Body weight Systolic And Diastolic Provider Name and Address Organization Details Last Updated DateTime 2 39 kg/m2 157.48 cm 96 % 96 % 66 /min 96.8 [degF] 70679.1 7 g 120/70 mm[Hg] Not Available [facility] 3 01:23:16 Date Recorded Body mass index (BMI) Body height Heart rate Body temperature Body weight Systolic And Diastolic Provider Name and Address Organization Details Last Updated DateTime 3 35 kg/m2 162.56 cm 68 /min 97.9 [degF] 31411.8 4 g 136/84 mm[Hg] Not Available [facility] 3 01:23:16 Date Recorded Body height Body mass index (BMI) Body weight Body temperature Heart rate Systolic And Diastolic Provider Name and Address Organization Details Last Updated DateTime 3 162.56 cm 35.7 kg/m2 20361.2 1 g 97.2 [degF] 74 /min 128/86 mm[Hg] NENITA Valdes [place] [employer] 3 11:17:07 Date Recorded Body height Body mass index (BMI) Body weight Body temperature Heart rate Systolic And Diastolic Provider Name and Address Organization Details Last Updated DateTime 3 162.56 cm 35.7 kg/m2 70187.2 1 g 98.1 [degF] 71 /min 132/80 mm[Hg] Jenae hernandez RN [place] [employer] [facility] [employer] 3 14:10:54 Social History Question Answer Notes LastModified by Organizat ion Details LastModified Time Tobacco Smoking Status Never Smoker Stefany julian [employer] [facility] [employer] 01/20/2023 13:57:05 Do You Have An Advance Directive? No [id number] Information not available 06/17/2022 Do You Wear A Helmet When Biking? No Does Not Bike Information not available 01/20/2023 Are You Blind Or Do You Have Difficulty Seeing? No Information not available 01/20/2023 What Is Your Level Of Caffeine Consumption? Moderate [id number] Information not available 06/17/2022 How Much Tobacco Do You Chew? None [id number] Information not available 06/17/2022 In The 14 Days Before Symptom Onset, Have You Had Close Contact With A Laboratory-confi rmed COVID-19 While That Case Was Ill? No Information not available 01/20/2023 In The 14 Days Before Symptom Onset, Have You Had Close Contact With A Person Who Is Under Investigation For COVID-19 While That Person Was Ill? No Information not available 01/20/2023 Are You Deaf Or Do You Have Serious Difficulty Hearing? No Information not available 01/20/2023 What Type Of Diet Are You Following? REGULAR [id number] Information not available 06/17/2022 Which Illicit Or Recreational Drugs Have You Used? None Information not available 01/20/2023 What Is The Highest Grade Or Level Of School You Have Completed Or The Highest Degree You Have Received? [id number] Information not available 01/20/2023 Have There Been Any Changes To Your Family Or Social Situation? No Information not available 01/20/2023 What Is The Fluoride Status Of Your Home? Unknown Information not available 01/20/2023 Are There Any Guns Present In Your Home? Yes Information not available 01/20/2023 Do You Use Insect Repellent Routinely? Yes Information not available 01/20/2023 Where Do You Live? SingleLevelHouse Information not available 01/20/2023 Do You Have A Medical Power Of Bulk System Operator? No Information not available 01/20/2023 What Was The Date Of Your Most Recent Tobacco Screening? 04/22/2023 Information not available 04/22/2023 Have You Ever Been Counseled For Unhealthy Alcohol Use? No Information not available 01/20/2023 Do You Have Any Pets? No Information not available 01/20/2023 What Is Your Relationship Status? [id number] Information not available 06/17/2022 Do You Use Your Seat Belt Or Car Seat Routinely? Yes Information not available 01/20/2023 Do You Have Smoke And Carbon Monoxide Detectors In Your Home? Yes Information not available 01/20/2023 Are You Passively Exposed To Smoke? No Information not available 01/20/2023 Are There Any Smokers In Your House? No Information not available 01/20/2023 How Much Tobacco Do You Smoke? No [id number] Information not available 06/17/2022 What Types Of Sporting Activities Do You Participate In? None Information not available 01/20/2023 Do You Use Sunscreen Routinely? Yes Information not available 01/20/2023 Has Tobacco Cessation Counseling Been Provided? No Not Needed-ne salbador Smoked Information not available 01/20/2023 Have You Recently Traveled Abroad? No Information not available 01/20/2023 Do You Have Difficulty Walking Or Climbing Stairs? No Information not available 01/20/2023 Do You Have Any Dietary Restrictions? No Information not available 01/20/2023 Sex: Female Functional Status Question Answer Note LastModified by Organizat ion Details LastModified Time Do you use any illicit or recreational drugs? No Information not available 01/20/2023 Do you or have you ever used any other forms of tobacco or nicotine? No Information not available 01/20/2023 What is your level of alcohol consumption? Occasional [id number] Information not available 06/17/2022 Do you or have you ever used smokeless tobacco? Never used smokeless tobacco [id number] Information not available 06/17/2022 Do you have transportation difficulties? No Information not available 01/20/2023 Are you able to walk independently without assistance or assistive devices? YESWOREST Information not available 01/20/2023 Do you have difficulty doing errands alone? No Information not available 01/20/2023 Are you able to care for yourself independently? 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 No Information not available 01/20/2023 Do you or have you ever used e-cigarettes or vape? Never used electronic cigarettes Information not available 01/20/2023 What is your exercise level? Moderate [id number] Information not available 06/17/2022 Mental Status Question Answer Note LastModified by Organizat [employer] Details LastModified Time Do you feel stressed (tense, restless, nervous, or anxious, or unable to sleep at night)? [id number] Information not available 01/20/2023 Do you have difficulty concentrating, remembering or making decisions? No Information no t available 01/20/2023 Family History Relationship Description Onset Age of this Age Resolved Age Notes LastModified by Organization Details LastModified Time Mother Diabetes mellitus [id number] Not available 06/17/2022 01:20:52 Mother Carcinoma of stomach Not available 2022 13:57:01 Father Non-Hodgkin' s lymphoma (clinical) Not available 01/20 13:57:01 Father Hypertensive disorder [id number] Not available 06/17/2022 01:20:52 Brother Coronary artery bypass graft 68 x3 Not available 07/2022 13:57:01 Brother Atrial fibrillation Not available 07/2022 13:57:01 Medical History Condition Response NERVE DISEASE N BLINDNESS N RHEUMATIC FEVER N KIDNEY STONES N BLADDER PROBLEMS N OTHER # 1 N POLIO N LUNG DISEASE/DISORDER N COPD N RADIATION / CHEMOTHERAPY N Other # 2 N BLOOD DISEASES N SURGERY N EAR OR HEARING PROBLEMS N MUMPS N DEPRESSION (INCLUDING POST ) N BOWEL PROBLEMS N STROKE/TIA N ULCERS N BENIGN PROSTATIC HYPERPLASIA N MEASLES N MYOCARDIAL INFARCTION N OBESITY N GERD/NAUSEA N ANEURYSM N URINARY/BLADDER/KIDNEY PROBLEMS N INPATIENT PSYCH CARE N CORONARY ARTERY DISEASE (CAD) N ADDICTION CONCERNS N Impotence N ENDOMETRIOSIS N USE OF BLOOD THINNERS N SKIN PROBLEMS N GASTROINTESTINAL DISORDER N PERIPHERAL VASCULAR DISEASE N MUSCLE,JOINT OR BONE PROBLEMS N GASTROINTESTINAL BLEEDING N BLOOD CLOTS N ASTHMA N CATARACTS N ERECTILE DYSFUNCTION N VARICOSITIES N GI PROBLEMS N Low Testosterone N INFERTILITY N AIDS/HIV N LIVER DISEASE N MALE HYPOGONADISM N HYPERTENSION Y Deficiency N ANXIETY DISORDER N BLOOD TRANSFUSION N ANEMIA/BLOOD DISORDER N CHRONIC EAR INFECTIONS N BRONCHITIS N TUBERCULOSIS N GLAUCOMA N FOOT PROBLEM N DIVERTICULITIS N SLEEP APNEA N CHICKENPOX N INFECTIOUS DISEASE N PROSTATE N HEART ARRHYTHMIA N INSOMNIA N HIGH CHOLESTEROL / HYPERLIPIDEMIA Y HYPERTHYROIDISM N EYE PROBLEMS N NEUROLOGICAL PROBLEMS N EDEMA N CHRONIC PAIN SYNDROME N HYPOTHYROIDISM N CONSTIPATION N CAROTID BLOCKAGE N BACK / NECK PROBLEMS N HAVE YOU BEEN HOSPITALIZED OR SEEN IN [facility] IN THE PAST YEAR ? N ATHEROSCLEROSIS N BREAST PROBLEMS N DIALYSIS N ECZEMA N OSTEOPOROSIS N ARTHRITIS N NO SIGNIFICANT PAST MEDICAL HISTORY N APPENDICITIS N DIABETES, TYPE Y BAD TEETH N ENT N HEARTBURN / REFLUX N AUTISM SPECTRUM DISORDER (ASD) N HEPATITIS / LIVER DISEASE N PULMONARY DISEASE N GOUT N SLEEP DISORDER N ALZHEIMER'S DISEASE N Brain Problems N HERPES N DEMENTIA N SEIZURES/EPILEPSY N HEADACHES/MIGRAINES N VASCULAR DISEASE N PACEMAKER N Blood Disorder N DIZZINESS N KIDNEY DISEASE N HEART DISEASE/HEART PROBLEMS N MULTIPLE SCLEROSIS N CARDIAC ARRHYTHMIA N CANCER: SPECIFY N ANESTHESIA COMPLICATIONS N Gall Stones N ATRIAL FIBRILLATION N PULMONARY EMBOLISM N AUTOIMMUNE DISEASE N Gynecological History Statement/Question Response Date of Last Mammogram 08/28/2016 Date of Last Colonoscopy 12/09/2016 Obstetrics History GPAL:G 0 P 0 0 0 0 Immunizations Vaccine Type Date Status Note Provider Nam e and Address Organization Details Recorded Time COVID-19, mRNA, LNP-S, PF, 100 mcg/0.5mL dose or 50 mcg/0.25mL dose 1 completed Not Available [facility] 05/01/2023 04:39:00 Influenza, split virus, quadrivalent, PF 2 completed Not Available [facility]23 04:39:00 COVID-19, mRNA, LNP-S, PF, 10 mcg/0.2 mL dose, rahul-sucrose 2 completed Not Available [facility] 05/01/2023 04:39:00 Influenza, high-dose, quadrivalent, PF 1 completed Not Available [facility] 05/01/2023 04:39:00 COVID-19 vaccine, vector-nr, rS-Ad26, PF, 0.5 mL 1 completed Not Available [facility] 05/01/2023 04:39:00 zoster recombinant 1 completed Not Available [facility] 05/01/2023 04:39:00 Td (adult), 5 Lf tetanus toxoid, preservative free, adsorbed 8 completed Not Available [facility] 05/01/2023 04:39:00 Hep B, adult 8 completed Not Available [facility] 05/01/2023 04:39:00 Td (adult), 2 Lf tetanus toxoid, preservative free, adsorbed 8 completed Not Available [facility] 05/01/2023 04:39:00 Hep B, adult 8 completed Not Available [facility] 05/01/2023 04:39:00 Influenza, split virus, quadrivalent, preservative 7 completed Not Available [facility] 05/01/2023 04:39:00 Past Encounters Encounter ID Performer Location Encounter Start Date Encounter Closed Date Diagnosis/Indication Diagnosis SNOMED-CT Code Diagnosis ICD10 Code Diagnosis IMO Codes Diagnosis Note [id number] Warren Knight MD [facility] Internal Med [facility] [address] [facility] [address] [address] 12/04/2020 00:00:00 12/05/2020 07:34:04 [id number] Warren Knight MD [facility] Internal Med [place] [address] [facility] , [place] [address] 01/23/2021 00:00:00 02/09/2021 15:27:01 [id number] Warren Knight MD [facility] Internal Med [place] [address] [facility] , [place] [address] 03/04/2021 00:00:00 03/19/2021 20:48:00 [id number] Warren Knight MD [facility] Internal Med [facility] [address] [facility] [address] [address] 06/02/2021 00:00:00 06/15/2021 12:07:39 [id number] Warren Knight MD [facility] Internal Med [facility] [address] [facility] [address] [address] 06/10/2022 00:00:00 06/11/2022 09:57:28 [id number] Warren Knight MD [facility] Internal Med [facility] [address] [facility] [address] [address] 12/16/2022 11:01:13 12/16/2022 12:10:45 Diabetes mellitus 62940916 E11.9 Essential hypertension 33557429 I10 Transient cerebral ischemia 862140524 G45.9 [id number] Warren Knight MD [facility] Internal Med [facility] [address] [facility] [address] [address] 01/20/2023 13:52:59 01/20/2023 14:37:19 Hypercholesterolemia 85691310 E78.00 Essential hypertension 33145701 I10 [id number] Warren Knight MD [facility] Internal Med [place] [address] [place] [address] 04/22/2023 13:00:18 04/22/2023 14:36:27 Type 2 diabetes mellitus without complication 090471784 E11.9 Essential hypertension 03374329 I10 Gastroesop hageal reflux disease without esophagitis 444947777 K21.9 Diabetes mellitus 952673 09 E11.9 Health Concerns Section Related Observation LastModified by Organization Detai ls LastModified Time None Recorded Concern Status LastModified by Organization Details LastModified Time None Recorded Advance Directives Directive N: Payers Insurance Date Sequence Insurance Name Policy Number Policy Byrd Covered Member ID Byrd Member ID Guarantor Name 05/17/2023 1 [employer] (MEDICARE REPLACEMENT/ ADVANTAGE - HMO) [id number] Alysha Paz [id number] Alysha Paz 04/22/2023 1 [place] [id number] 1 Alysha Paz [id number] Alysha Paz Notes Date Note Type Note Provider Name and Address Organization Details Recorded Time 12/16/2022 text/html she had an episode where she could not find her words for probably 2 or 3 hours while she was in [place] it has not come back headache any other symptoms. this happened several weeks Diabetes uncontrolled hypertension no headache no dizziness Warren Knight MD [address], [place], [address], [employer] [facility] [employer] 12/20/2022 16:17:15 01/20/2023 text/html 10 do a lot of the test and she has not started the Ozempic A1c was 12 Warren Knight MD [address], [place], [address], [employer] [facility] [employer] 01/23/2023 14:18:01 04/22/2023 text/html Less than compliant with her diet sugars are high dyslipidemia needs to follow low-fat diet needs blood work still then get any of the testing that I wanted done to evaluate her stroke-like symptom Warren Knight MD [address], [place], [address], [employer] [facility] [employer] [facility] 05/06/2023 15:41:18 OBGyn Episode No OBEpisode recorded.
[2025-01-18 16:04] VITALS: BP 212/106; PULSE 106; RESP 18; TEMP 36.4; O2SAT 96
[2025-01-18 17:32] VITALS: BP 161/81; PULSE 97; RESP 14; TEMP 36.8; O2SAT 96
[2025-01-18 17:36] VITALS: BP 161/81; PULSE 91; RESP 14; O2SAT 96
--- NOTE | 2025-01-18 17:45 | ED.WOUNDLAC ---
HPI - Wound/Laceration General Chief Complaint: Wound/Laceration Stated Complaint: wound R foot Time Seen by Provider: 01/18/25 17:28 History of Present Illness HPI narrative: Patient is a 69-year-old female who presents to the ER with a wound in between her 4th and 5th toes. She reports she 1st noticed the site on Wednesday, because it had broken open. Patient reports she has kept the site covered and put triple antibiotic cream on the site 3 times a day. Today patient called her doctor who advised her to come to the ER for further evaluation. Patient endorses a history of high blood pressure, diabetes, high cholesterol. She reports she has not been good about taking her insulin lately, therefore her sugars have been high. Patient denies any recent fevers, significant swelling, or decreased range of motion in her toes. Related Data Allergies Allergy/AdvReac Type Severity Reaction Status Date / Time Penicillins Allergy Mild Other Verified 01/18/25 15:46 Review of Systems Review of Systems: All systems reviewed & are unremarkable except as noted in HPI and below Exam Narrative: GENERAL: Well appearing, well-nourished, non-toxic, in no acute distress. HEAD: Normocephalic, atraumatic. NECK: Supple. No adenopathy, no masses. RESPIRATORY: Airway patent, respirations nonlabored. Clear to auscultation bilaterally, no rales, rhonchi, wheezing. CARDIOVASCULAR: Regular rate and rhythm without murmurs, rubs, or gallops. Peripheral pulses 2+ and equal bilaterally. ABDOMINAL: Soft, nontender, nondistended, no hepatosplenomegaly. Normoactive BS. MUSCULOSKELETAL: Moves all extremities. Strength/ROM intact without gross deformities. SKIN: Warm, dry, normal color. No rashes. 0.5 cm round blister to the base of pt's 4th R toe, no visible drainage, 5th toe is slightly red and swollen in between toes NEURO: A&O X3. Speech clear. Cranial nerves II-XII intact. No ataxic movements. PSYCHIATRIC: Appropriate mood and affect. Normal interaction. Course Vital Signs Vital signs: Vital Signs Temperature 36.4 C 01/18/25 16:04 Pulse Rate 106 H 01/18/25 16:04 Respiratory Rate 18 01/18/25 16:04 Blood Pressure 212/106 H 01/18/25 16:04 Pulse Oximetry 96 10/02/25 16:04 Temperature 36.8 C 01/18/25 17:32 Pulse Rate 91 01/18/25 17:36 Respiratory Rate 14 01/18/25 17:36 Blood Pressure 161/81 H 01/18/25 17:36 Pulse Oximetry 96 01/18/25 17:36 Oxygen Delivery Room Air 01/18/25 17:32 MDM - Wound/Laceration MDM Narrative Medical decision making narrative: Patient is a 69-year-old female who presents to the ER with a wound in between her 4th and 5th toes. She reports she 1st noticed the site on Wednesday, because it had broken open. Patient reports she has kept the site covered and put triple antibiotic cream on the site 3 times a day. Today patient called her doctor who advised her to come to the ER for further evaluation. Patient endorses a history of high blood pressure, diabetes, high cholesterol. She reports she has not been good about taking her insulin lately, therefore her sugars have been high. Patient denies any recent fevers, significant swelling, or decreased range of motion in her toes. Labs Ordered: None necessary Imaging Ordered: R foot x-ray Medications Ordered: Keflex PO Results: Patient's right foot x-ray indicates no acute abnormalities. Diagnosis: Right foot wound Patient Education/Shared MDM: Results of imaging shared with patient. She was strongly advised to resume giving herself insulin to keep her blood sugars within normal limits. Patient will be given her 1st dose of oral antibiotics here in the ER. She was also advised to put Mupirocin on the spot. Patient strongly advised to follow-up with her PCP as soon as possible. She will be discharged home with a prescription for Bactrim. Strict return precautions provided. Patient verbalized understanding and is in agreement with plan. Vital signs stable at time of discharge. All questions answered. Differential Diagnosis Differential diagnosis: Likely laceration, abscess and abrasion Discharge Plan Discharge Clinical Impression: Open wound of right foot, Diabetic infection of right foot Patient Disposition: Home Condition: Stable Instructions: Antibiotic Form, Foot Care for People with Diabetes (ED), Diabetes and Your Skin (ED) Additional Instructions: Please return to the ER with any worsening symptoms. Follow-up with primary care provider in the next 2-3 days to ensure your wound is healing. Take all medications as prescribed, including regularly scheduled medications. Complete your full dose of antibiotics. You may place Mupirocin cream on your wound up to 3 times a day. Please keep your wound covered. Patient Language: Yoruba Prescriptions: New sulfamethoxazole-trimethoprim [Bactrim DS] 800-160 mg tablet 1 tablet PO Q12H 10 Days Qty: 20 0RF mupirocin [Centany] 2 % ointment 1 applic topical TID Qty: 22 0RF Follow-up/Referrals: UNKNOWN,DOCTOR [Non-Staff] Time of Disposition: 18:36
[2025-01-18] MEDS: SULFAMETHOXAZOLE/TRIMETHOPRIM 800/160 MG DS TABLET 2 TAB PO (18:56)
[2025-01-18 19:20] VITALS: BP 160/92; PULSE 88; RESP 14; O2SAT 96
== END 2025-01-18 19:21 | disposition home or self-care (01) ==
PROVIDERS: Emergency Provider Registered Nurse; PCP Internal Medicine
DX: E11.628 Type 2 diabetes mellitus with other skin complications (principal); L98.8 Other specified disorders of the skin and subcutaneous tissue; L08.9 Local infection of the skin and subcutaneous tissue, unspecified; I10 Essential (primary) hypertension; E78.00 Pure hypercholesterolemia, unspecified; Z79.4 Long term (current) use of insulin
CPT/HCPCS: 73630; 99283; A9270